=== PATIENT | female | born 2000 | race Caucasian/White ===

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

== ENCOUNTER → 2022-02-10 | Outpatient (CLI) | payer OTHER ==
[2022-02-10 17:05] LABS: MEAN CELL VOLUME 90.7 fl (81.0-99.0); MEAN CORPUSCULAR HGB 29.3 pg (27.0-31.0); MEAN CORPUSCULAR HGB CONC 32.3 g/dl (33.0-37.0); MEAN PLATELET VOLUME 9.4 fl (9.6-12.3); RED BLOOD COUNT 4.3 10*6/uL (4.10-5.10); RED CELL DISTRI WIDTH 13.3 % (0-14.5); WHITE BLOOD COUNT 5.3 10*3/uL (4.8-10.8)
[2022-02-10 17:15] LABS: ACT PARTIAL THROMBO TIME 31.9 SECONDS (20.0-32.1)
[2022-02-10 17:23] LABS: BUN 6 mg/dl (7-24); CHLORIDE 107 mmol/L (98-107); CHOLESTEROL 151 mg/dL (<200); CREATININE 0.57 mg/dL (0.55-1.02); POTASSIUM 3.5 mmol/L (3.5-5.1); SGOT/AST 10 IU/L (3-35); SGPT/ALT 15 U/L (12-78); SODIUM 138 mmol/L (136-145); TOTAL PROTEIN 7.2 gm/dL (6.4-8.2); TRIGLYCERIDES 52 mg/dl (<150)
[2022-02-10 17:28] LABS: ALKALINE PHOSPHATASE 77 U/L (45-117); FREE T4 1.06 ng/dl (0.76-1.46); LDL CHOLESTEROL 93 mg/dL (9-159); THYROID STIM HORMONE (HS) 0.954 uIU/ml (0.358-4.75)
[2022-02-10 17:44] LABS: VITAMIN D, 25-HYDROXY 18.6 ng/mL (30-100)
[2022-02-12 12:07] LABS: TESTOSTERONE FREE, (DIRECT) 1.6 pg/mL (0.0-4.2)
== END | disposition home or self-care (01) ==
LOC: LAB 16:50
PROVIDERS: ATTEND Family Medicine
DX: Z00.00 Encounter for general adult medical examination without abnormal findings (principal); E55.9 Vitamin D deficiency, unspecified; E66.9 Obesity, unspecified